=== PATIENT | female | born 1990 | race Caucasian/White ===

== ENCOUNTER 2020-07-01 02:20 | Observation (INO) | payer OTHER ==
[~2020-07-01] VITALS: Ht 167.6 cm; Wt 81.6 kg
[2020-07-01] MEDS ORDERED: PREN-96 PO (02:47)
== END 2020-07-01 03:55 | disposition home or self-care (01) ==
LOC: UNDOADMOB 02:20 → LDRP 02:20 → UNDODISOB 03:55
PROVIDERS: ADMIT Specialist; ATTEND Specialist
DX: O62.9 Abnormality of forces of labor, unspecified (principal); O99.343 Other mental disorders complicating pregnancy, third trimester; F32.9 Major depressive disorder, single episode, unspecified; Z87.59 Personal history of other complications of pregnancy, childbirth and the puerperium; Z3A.38 38 weeks gestation of pregnancy
CPT/HCPCS: 59025; 81002; G0378

== ENCOUNTER 2020-07-01 11:18 | Inpatient (IN) | payer OTHER ==
[~2020-07-01] VITALS: Ht 167.6 cm; Wt 81.6 kg
[~2020-07-01 11:18] MED LIST: PREN-96 PO
[2020-07-01] MEDS ORDERED: BUTORPHANOL TARTRATE 2 MG/1 ML VIAL IV PRN (12:30)
[2020-07-01] MEDS ORDERED: PENICILLIN G POT 5MIL/D5 50ML 50 ML IV ONE (12:30)
[2020-07-01] MEDS ORDERED: WITCH HAZEL-GLYCERIN PAD TOP PRN (12:30)
[2020-07-01] MEDS ORDERED: PROMETHAZINE HCL 25 MG/ML 1ML IV PRN (12:30)
[2020-07-01] MEDS ORDERED: PHISODERM TOP SOLN 240ML BTL TOP PRN (12:30)
[2020-07-01] MEDS ORDERED: DERMOPLAST 60ML BOTTLE TOP PRN (12:30)
[2020-07-01] MEDS: LACTATED RINGER'S 1,000 ML IV SCH ×2 (13:00→15:00)
[2020-07-01 13:22] LABS: Amphetamine Screen, Urine NEGATIVE (NEGATIVE); Barbiturate Scree,Urine NEGATIVE (NEGATIVE); Benzodiazephine Screen, Urine NEGATIVE (NEGATIVE); Cannabinoid Screen, Urine NEGATIVE (NEGATIVE)
[2020-07-01 13:24] LABS: Urine Bacteria NONE SEEN /hpf (None Seen); Urine Blood Negative /uL (Negative); Urine Mucus FEW (None Seen); Urine Specific Gravity 1.012 (1.001-1.035); Urine WBC 5 /hpf (0 - 5)
[2020-07-01 13:25] LABS: Cocaine Screen, Urine NEGATIVE (NEGATIVE); Opiate Scree,Urine NEGATIVE (NEGATIVE); Phencyclidine Screen, Urine NEGATIVE (NEGATIVE)
[2020-07-01 13:46] LABS: Basophils # (auto) 0 10 ^3/uL (0-0.2); Basophils % (auto) 0.1 % (0.0-2.0); Eosinophils # (auto) 0 10 ^3/uL (0-0.8); Eosinophils % (auto) 0.2 % (0.0-7.0); Hematocrit 34.5 % (36.0-46.0); Hemoglobin 11.9 g/dL (12.2-16.2); Lymphocytes # (auto) 1.1 10 ^3/uL (0.4-5.4); Lymphocytes % (auto) 8.4 % (10.0-50.0); Mean Corpuscular Hgb Conc. 34.5 g/dL (32.0-36.0); Mean Corpuscular Volume 95.7 fL (80.0-100.0); Monocytes # (auto) 1.3 10 ^3/uL (0-1.3); Monocytes % (auto) 9.6 % (0.0-12.0); Neutrophils # (auto) 10.9 10 ^3/uL (1.6-8.6); Neutrophils % (auto) 81.7 % (37.0-80.0); Platelet Count (auto) 170 10^3/uL (140-450); Red Blood Cells 3.61 10^6/uL (4.0-5.20); Red Cell Distribution Width 13.4 % (11.8-14.3); White Blood Cell 13.3 10^3/uL (4.4-10.8)
[2020-07-01 14:02] LABS: INR 0.91 (0.9-1.15)
[2020-07-01 14:18] LABS: Albumin 2.5 g/dL (3.4-5.0); Calcium 9.2 mg/dL (8.5-10.1); Potassium 3.6 mmol/L (3.5-5.1)
[2020-07-01 14:22] LABS: Bilirubin, Total 0.2 mg/dL (0.2-1.0); Total Protein 6.2 g/dL (6.4-8.2)
[2020-07-01] MEDS ORDERED: fentaNYL CITRATE 100 MCG/2 ML VL IV ONE (14:30)
[2020-07-01] MEDS ORDERED: ROPIVACAINE HCL 200 ML EPI SCH ×2 (14:30→17:00)
[2020-07-01] MEDS ORDERED: NALOXONE HCL 0.4 MG/ML VIAL IV ONE (14:30)
[2020-07-01] MEDS ORDERED: LIDOCAINE HCL 2 %PF INJ 10ML AMP IJ ONE (14:30)
[2020-07-01] MEDS ORDERED: LACTATED RINGER'S 1,000 ML IV ONE (14:30)
[2020-07-01] MEDS ORDERED: ePHEDrine SULFATE 50 MG/ML AMP IV ONE (14:30)
[2020-07-01] MEDS ORDERED: PENICILLIN G POTASSIUM 2,500,000 UNITS in D5W 5% 50 ML IV SCH (16:30)
[2020-07-01] MEDS ORDERED: LACT. RINGERS/OXYTOCIN 20UNITS 1,000 ML IV ONE (17:15)
[2020-07-01] MEDS ORDERED: LACT. RINGERS/OXYTOCIN 20UNITS 1,000 ML IV SCH (18:15)
[2020-07-01] MEDS: IBUPROFEN 600 MG TAB PO PRN (21:15)
[2020-07-01 22:48] VITALS: BP 104/62
[2020-07-02] MEDS: IBUPROFEN 600 MG TAB PO PRN ×5 (01:12→15:19)
[2020-07-02 03:00] VITALS: BP 111/74
[2020-07-02 05:07] LABS: RPR Non Reactive (Non Reactive)
[2020-07-02 07:00] VITALS: BP 104/69
[2020-07-02 10:30] VITALS: BP 105/74
[2020-07-02 15:00] VITALS: BP 111/71
[2020-07-02 19:00] VITALS: BP 101/58
== END 2020-07-02 20:45 | disposition home or self-care (01) | DRG 807 ==
LOC: LDRP 11:18 → OBSVTOIN 12:15 → LDRP 15:05
PROVIDERS: ADMIT Specialist; ATTEND Specialist
PROC: 10E0XZZ Delivery of Products of Conception, External Approach (ICD-10-PCS; principal; 2020-07-01)
PROC: 3E0R3BZ Introduction of Anesthetic Agent into Spinal Canal, Percutaneous Approach (ICD-10-PCS; 2020-07-01)
PROC: 00HU33Z Insertion of Infusion Device into Spinal Canal, Percutaneous Approach (ICD-10-PCS; 2020-07-01)
PROC: 10907ZC Drainage of Amniotic Fluid, Therapeutic from Products of Conception, Via Natural or Artificial Opening (ICD-10-PCS; 2020-07-01)
DX: O70.0 First degree perineal laceration during delivery (principal); Z37.0 Single live birth; Z3A.38 38 weeks gestation of pregnancy; Z20.828 Contact with and (suspected) exposure to other viral communicable diseases
CPT/HCPCS: 36415; 59025; 59409; 62282; 80053; 80307; 81001; 81002; 85025; 85610; 85730; 86592; 86850; 86900; 86901; 87426; 94760; 96360; 96361; 96365; 96366; G0378; J2590; J7060

== ENCOUNTER 2024-03-16 07:03 | Day surgery (SDC) | payer OTHER ==
[2024-03-13 10:54] LABS: Urine Bacteria None Seen /hpf (None Seen)
[2024-03-13 11:09] LABS: Basophils # (auto) 0 10 ^3/uL (0-0.2); Basophils % (auto) 0.3 % (0.0-2.0); Eosinophils # (auto) 0 10 ^3/uL (0-0.8); Lymphocytes # (auto) 1.4 10 ^3/uL (0.4-5.4); Lymphocytes % (auto) 17.7 % (10.0-50.0); Mean Corpuscular Hemoglobin 32.4 pg (28.0-32.0); Mean Corpuscular Hgb Conc. 34.1 g/dL (32.0-36.0); Mean Corpuscular Volume 95.1 fL (80.0-100.0); Monocytes # (auto) 0.7 10 ^3/uL (0-1.3); Monocytes % (auto) 9.1 % (0.0-12.0); Neutrophils # (auto) 5.6 10 ^3/uL (1.6-8.6); Neutrophils % (auto) 72.9 % (37.0-80.0); Nucleated Red Blood Cells % 0.1 %; Platelet Count (auto) 223 10^3/uL (140-450); Red Blood Cells 4.62 10^6/uL (4.0-5.20); Red Cell Distribution Width 12.7 % (11.8-14.3); White Blood Cell 7.7 10^3/uL (4.4-10.8)
[2024-03-13 11:12] LABS: Urine Blood Negative /uL (Negative); Urine Clarity Clear (Clear); Urine Color Light-Yellow (Yellow); Urine Protein, UAD Negative (Negative); Urine Urobilinogen Normal (Negative); Urine WBC 1 /hpf (0 - 5)
[2024-03-13 11:30] LABS: INR 1.07 (0.9-1.15); Partial Thromboplastin Time 27.8 SEC (24.5-34.5); Prothrombin Time 11.3 sec (9.3-11.8)
[2024-03-13 11:36] LABS: Alanine Aminotransferase 23 U/L (7-40); Albumin 4.9 g/dL (3.2-4.8); Alkaline Phosphatase 66 U/L (46-116); Anion Gap 5 (5-15); Aspartate Aminotransferase 15 U/L (13-40); BUN/Creatinine Ratio 13.3 (10.0-20.0); Bilirubin, Total 0.5 mg/dL (0.2-1.0); Blood Urea Nitrogen 11 mg/dL (9-23); Calcium 10.4 mg/dL (8.7-10.4); Carbon Dioxide 27 mmol/L (20-30); Chloride 107 mmol/L (98-107); Glucose 87 mg/dL (74-106); Potassium 4.3 mmol/L (3.5-5.1); Sodium 139 mmol/L (136-145); Total Protein 7.2 g/dL (5.7-8.2)
[~2024-03-16] VITALS: Ht 167.6 cm; Wt 61.2 kg
[~2024-03-16 07:03] MED LIST changes: +ESCI10TA PO; -PREN-96 PO; +TERB250T92 PO
[2024-03-16] MEDS ORDERED: ZOFR4T PO (07:42)
[2024-03-16] MEDS ORDERED: HYDR-4072 PO (07:42)
[2024-03-16] MEDS ORDERED: PROPOFOL 10 MG/ML 20 ML IV ONE (08:07)
[2024-03-16] MEDS ORDERED: DexAMETHasone SOD PHOS 10MG/1ML VIAL INJ ONE (08:07)
[2024-03-16] MEDS ORDERED: ONDANSETRON HCL 4 MG/2 ML VIAL ONE (08:07)
[2024-03-16] MEDS ORDERED: ePHEDrine SULFATE 50 MG/ML AMP ONE (08:07)
[2024-03-16] MEDS ORDERED: GLYCOPYRROLATE 0.2 MG/ML 1ML VIAL ONE (08:07)
[2024-03-16] MEDS ORDERED: LIDOCAINE 2% (LOCAL ANESTH.) PF 5ml SDV ONE (08:07)
[2024-03-16] MEDS ORDERED: KETOROLAC TROMETH 30 MG/ML 1ML VIAL ONE (08:07)
[2024-03-16] MEDS ORDERED: MIDAZOLAM HCL 2MG/2ML 2ml VIAL (1mg/ml) ONE (08:07)
[2024-03-16] MEDS ORDERED: fentaNYL CITRATE 100 MCG/2 ML VL ONE (08:07)
[2024-03-16] MEDS: ceFAZolin 2 GM/D5W100ml 100 ML IV ONE (08:48)
[2024-03-16] MEDS: FERRIC SUBSULFATE TOPICAL SOLN 30 ML BTL ONE (09:07)
[2024-03-16] MEDS: IODINE STRONG 5% SOLN 473ML ONE (09:07)
[2024-03-16 09:27] VITALS: PULSE 82; RESP 13; TEMP 98.4; O2SAT 95
[2024-03-16] MEDS ORDERED: ONDANSETRON HCL 4 MG/2 ML VIAL IV ONE (09:45)
[2024-03-16] MEDS ORDERED: HYDROmorphone HCL 2 MG/ML VL/or syr IV PRN (09:45)
[2024-03-16] MEDS ORDERED: MEPERIDINE HCL (25 MG/ML) 1ML VIAL ONE (09:59)
[2024-03-16] MEDS ORDERED: MEPERIDINE HCL (25 MG/ML) 1ML VIAL IV ONE (10:00)
[2024-03-16 10:10] VITALS: BP 127/75; PULSE 92; RESP 15; O2SAT 97
== END 2024-03-16 10:30 | disposition home or self-care (01) ==
LOC: SUR 07:03
PROVIDERS: ATTEND Obstetrics & Gynecology
DX: R87.612 Low grade squamous intraepithelial lesion on cytologic smear of cervix (LGSIL) (principal); N88.8 Other specified noninflammatory disorders of cervix uteri; F32.A Depression, unspecified; Z98.890 Other specified postprocedural states
CPT/HCPCS: 36415; 57522; 80053; 81001; 81025; 84702; 85025; 85610; 85730; 86850; 86900; 86901; 88305; 88342; J1100; J1885; J2001; J2175; J2250; J2405; J2704; J3010